=== PATIENT | male | born 1980 | race Caucasian/White ===

== ENCOUNTER → 2021-05-13 | Outpatient (CLI) | LOC: M LABSMTC 10:02 | PROVIDERS: ATTEND Anesthesiology | DX: Z01.812 Encounter for preprocedural laboratory examination (principal); Z11.52 Encounter for screening for COVID-19 ==

== ENCOUNTER 2021-05-18 11:58 | Day surgery (SDC) | payer BC, OTHER ==
[~2021-05-18] VITALS: Ht 180.3 cm; Wt 96.1 kg
[~2021-05-18 11:58] MED LIST: NS 1,000 ML IV ONE
[2021-05-18] MEDS ORDERED: LIDOCAINE 2% 100MG/5ML SDV (FOR ANES.) As Ordered ONE (13:02)
[2021-05-18] MEDS ORDERED: propofoL 200 MG/20 ML VIAL As Ordered ONE ×2 (13:02→13:51)
--- NOTE | 2021-05-18 14:00 | ROOR ---
Patient Name: David Pineda Procedure Date: 05/18/2021 1:29 PM Date of : 1980 Age: 40 Room: [facility] Gender: Male Note Status: Finalized Procedure: Colonoscopy Indications: Rectal bleeding Providers: Wilbert Amador Jr, MD Referring MD: Golden Singleton MD Requesting Provider: Medicines: Propofol per Anesthesia Complications: No immediate complications. Procedure: Pre-Anesthesia Assessment: - Prior to the procedure, a History and Physical was performed, and patient medications and allergies were reviewed. The patient is competent. The risks and benefits of the procedure and the sedation options and risks were discussed with the patient. All questions were answered and informed consent was obtained. Patient identification and proposed procedure were verified by the physician and the nurse in the pre-procedure area and in the procedure room. Mental Status Examination: alert and oriented. Airway Examination: normal oropharyngeal airway and neck mobility. Respiratory Examination: clear to auscultation. CV Examination: normal. ASA Grade Assessment: II - A patient with mild systemic disease. After reviewing the risks and benefits, the patient was deemed in satisfactory condition to undergo the procedure. The anesthesia plan was to use moderate sedation / analgesia (conscious sedation). Immediately prior to administration of medications, the patient was re-assessed for adequacy to receive sedatives. The heart rate, respiratory rate, oxygen saturations, blood pressure, adequacy of pulmonary ventilation, and response to care were monitored throughout the procedure. The physical status of the patient was re-assessed after the procedure. The Colonoscope was introduced through the anus and advanced to the cecum, identified by appendiceal orifice and ileocecal valve. The colonoscopy was performed without difficulty. The patient tolerated the procedure well. The quality of the bowel preparation was adequate. Findings: The rectum, recto-sigmoid colon, sigmoid colon, descending colon, transverse colon, ascending colon, cecum, appendiceal orifice and ileocecal valve appeared normal. Bleeding hemorrhoids were found during retroflexion and during endoscopy. The hemorrhoids were Grade II (internal hemorrhoids that prolapse but reduce spontaneously) and Grade III (internal hemorrhoids that prolapse but require manual reduction). Two bands were successfully placed. There was no bleeding at the end of the procedure. Impression: - The rectum, recto-sigmoid colon, sigmoid colon, descending colon, transverse colon, ascending colon, cecum, appendiceal orifice and ileocecal valve are normal. - Bleeding hemorrhoids. Banded. - No specimens collected. Recommendation: - Discharge patient to home (ambulatory). - Repeat colonoscopy at age 49 for screening purposes. Procedure Code(s): --- Professional --- 59778, Colonoscopy, flexible; with band ligation(s) (eg, hemorrhoids) Diagnosis Code(s): --- Professional --- K64.2, Third degree hemorrhoids K62.5, Hemorrhage of anus and rectum CPT copyright 2019 [employer]. All rights reserved. The codes documented in this report are preliminary and upon label coder review may be revised to meet current compliance requirements. Wilbert Amador MD Wilbert Amador Jr, MD 05/18/2021 2:00:21 PM Electronically signed by Wilbert Amador Jr, MD Number of Addenda: 0 Note Initiated On: 05/18/2021 1:29 PM Estimated Blood Loss: Estimated blood loss: none.
[2021-05-18] MEDS ORDERED: KETOROLAC 60MG 2ML VIAL IM ONE (14:50)
[2021-05-18] MEDS ORDERED: KETOROLAC 60MG 2ML VIAL As Ordered ONE (15:00)
[2021-05-18 15:33] VITALS: BP 136/76
== END 2021-05-18 15:38 | disposition home or self-care (01) ==
LOC: M OPP 11:58
PROVIDERS: ATTEND Surgery
DX: K62.5 Hemorrhage of anus and rectum (principal); K64.2 Third degree hemorrhoids; Z88.2 Allergy status to sulfonamides
CPT/HCPCS: 45398; J1885